=== PATIENT | female | born 1995 ===

== ENCOUNTER 2022-05-27 20:27 | Emergency (ER) | payer SELFPAY | END 2022-05-28 01:32 | disposition left against medical advice (07) | LOC: ED 20:27 | DX: Z04.1 Encounter for examination and observation following transport accident (principal); Z53.21 Procedure and treatment not carried out due to patient leaving prior to being seen by health care provider ==

== ENCOUNTER 2022-06-05 10:16 | Emergency (ER) | payer SELFPAY ==
[2022-06-05 11:08] VITALS: BP 133/87
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
[2022-06-05 13:01] LABS: Basophils % (Auto) 0.5 % (0.0-1.8); Eosinophils # (Auto) 0.2 K/mm3 (0.0-0.4); Eosinophils % (Auto) 3.3 % (0.0-4.3); Hematocrit 39.2 % (30.3-42.9); Hemoglobin 13.2 gm/dl (10.1-14.3); Lymphocytes # (Auto) 1.4 K/mm3 (1.2-5.4); Lymphocytes % (Auto) 26.3 % (13.4-35.0); Mean Corpuscular HGB Conc 34 % (30-34); Mean Corpuscular Volume 86 fl (79-97); Monocytes # (Auto) 0.4 K/mm3 (0.0-0.8); Monocytes % (Auto) 6.8 % (0.0-7.3); Platelet Count 182 K/mm3 (140-440); Red Blood Count 4.58 M/mm3 (3.65-5.03); Red Cell Distribution Width 12.7 % (13.2-15.2)
[2022-06-05 13:13] LABS: Alanine Aminotransferase 8 units/L (7-56); Albumin 4.4 g/dL (3.9-5); BUN/Creatinine Ratio 17; Blood Urea Nitrogen 10 mg/dL (7-17); Calcium 9.8 mg/dL (8.4-10.2); Hemolysis Index 6
== END 2022-06-05 15:25 | disposition left against medical advice (07) ==
LOC: ED 10:16
DX: M79.18 Myalgia, other site (principal); R07.81 Pleurodynia
CPT/HCPCS: 36415; 80053; 83690; 85025; 99283